=== PATIENT | male | born 1980 | race African-American/Black ===

== ENCOUNTER 2016-12-22 14:46 | Emergency (ER) | payer OTHER ==
[~2016-12-22] VITALS: Ht 180.3 cm; Wt 68.0 kg
[2016-12-22] MEDS ORDERED: LIDODERM 5%1 PATC1 TRANSDERM (15:19)
[2016-12-22] MEDS ORDERED: LIORESAL 10 MG10 MG PO (15:19)
[2016-12-22] MEDS ORDERED: MEDROLDOSEPACK PO (15:19)
[2016-12-22 15:45] VITALS: BP 151/95
== END 2016-12-22 15:45 | disposition home or self-care (01) ==
LOC: ER 14:46
DX: S29.012A Strain of muscle and tendon of back wall of thorax, initial encounter (principal); S39.012A Strain of muscle, fascia and tendon of lower back, initial encounter; R51 Headache; F10.99 Alcohol use, unspecified with unspecified alcohol-induced disorder; F15.90 Other stimulant use, unspecified, uncomplicated; V89.2XXA Person injured in unspecified motor-vehicle accident, traffic, initial encounter; Y93.89 Activity, other specified; Y92.89 Other specified places as the place of occurrence of the external cause; Y99.8 Other external cause status